=== PATIENT | male | born 1990 | race Hispanic/Latino ===

== ENCOUNTER 2018-03-10 15:46 | Emergency (ER) | payer SELFPAY ==
[~2018-03-10] VITALS: Ht 165.1 cm; Wt 77.0 kg
[2018-03-10 16:32] LABS: HEMATOCRIT 39.8 % (39.0-50.0); HEMOGLOBIN 14.1 g/dl (14.0-18.0); IMMATURE GRANULOCYTES 0.7 % (0.0-5.0); MEAN CELL VOLUME 87.1 fL CALC (80.0-100.0); MEAN CORPUSCULAR HGB 30.9 pG CALC (26.0-32.0); MEAN CORPUSCULAR HGB CONC 35.4 g/L CALC (32.0-36.0); NEUT# 2.64 thou/uL (1.82-7.42); RED BLOOD COUNT 4.57 mill/uL (4.70-6.10)
[2018-03-10 16:48] LABS: ALBUMIN 4.4 g/dL (3.2-5.0); ALKALINE PHOSPHATASE 121 u/l (38-126); ANION GAP 17 (6-22 (CALC)); BILIRUBIN, TOTAL 0.5 mg/dL (0.0-1.4); BUN 12 mg/dL (9-20); BUN/CREATININE RATIO 18 (12-20 (CALC)); CARBON DIOXIDE 23 mmol/l (22-30); CHLORIDE 105 mmol/l (95-108); CREATININE 0.6 mg/dL (0.7-1.3); GFR > 60 ML/MIN (>=60 (CALC)); GFR FOR AFR.AMER. > 60 ML/MIN (>=60 (CALC)); SGOT/AST 134 u/l (17-59); SGPT/ALT 251 u/l (21-72); SODIUM 141 mmol/l (137-146); TOTAL PROTEIN 7.7 g/dL (6.3-8.2)
[2018-03-10] MEDS ORDERED: MOTRIN800 MG PO (16:55)
[2018-03-10 17:13] VITALS: BP 133/77
== END 2018-03-10 17:16 | disposition home or self-care (01) | DRG 556 ==
LOC: ED 15:46
PROVIDERS: Emergency Medicine
DX: M79.89 Other specified soft tissue disorders (principal)

== ENCOUNTER 2018-05-28 18:25 | Emergency (ER) | payer SELFPAY ==
[~2018-05-28] VITALS: Ht 165.1 cm; Wt 82.0 kg
[~2018-05-28 18:25] MED LIST: MOTRIN800 MG PO
[2018-05-28 18:50] VITALS: BP 128/85
[2018-05-28] MEDS ORDERED: KEFLEX500 M1 PO (18:50)
[2018-05-28] MEDS ORDERED: BACTRIM DS1 TAB PO (18:50)
== END 2018-05-28 18:50 | disposition home or self-care (01) | DRG 603 ==
LOC: ED 18:25
DX: L03.116 Cellulitis of left lower limb (principal)